=== PATIENT | male | born 1990 | race Caucasian/White ===

== ENCOUNTER 2019-12-30 10:56 | Outpatient (RCR) | payer OTHER, SELFPAY ==
--- NOTE | 2020-01-20 10:25 | MHC.PT.DC ---
[facility] [place] Office [place] Office [place] [facility] [address] Deb Moran [address] [phone] F: [phone] F: [phone] F: [phone] F: [phone] Physical Therapy Discharge Report Diagnosis: Sprain of Ligament of L ankle Date of Surgery: N/A Date of Evaluation: 12/14/19 Date of Discharge: 01/20/20 Treatments to Date: 3 Cancellations to Date: 0 No Shows to Date: 0 Discharge Status: Visit Non-compliance Discharge Summary: 01/20/20- Pt only attended 2 visits after evaluation. His last treatment was on 12/30/19. He did not make any more appointments. Attempted to call patient to make appointments however pt did not return call therefore d/c from therapy. Electronically signed by: Irene Garcia DPT Please sign and return to therapist. Thank you for your referral.
== END 2020-01-20 10:26 | disposition other institution (70) ==
LOC: HO.PT 10:56
PROVIDERS: Visit Provider Physician Assistant
DX: S93.402D Sprain of unspecified ligament of left ankle, subsequent encounter (principal); X58.XXXD Exposure to other specified factors, subsequent encounter
CPT/HCPCS: 97110

== ENCOUNTER 2020-11-29 09:36 | Outpatient (REF) | payer OTHER, SELFPAY | END 2020-11-29 09:37 | disposition home or self-care (01) | LOC: HO.LAB 09:36 | PROVIDERS: Visit Provider Internal Medicine | DX: Z20.822 Contact with and (suspected) exposure to COVID-19 (principal) | CPT/HCPCS: C9803; U0003; U0005 ==